=== PATIENT | female | born 1945 | race Two or more races ===

== ENCOUNTER 2016-03-23 21:05 | Emergency (ER) | payer MEDICARE, OTHER ==
[~2016-03-23] VITALS: Ht 167.6 cm; Wt 77.1 kg
[2016-03-23 21:06] VITALS: BP 134/72
[2016-03-23] MEDS ORDERED: Norco 5mg/325mg tab ORAL ONE (21:30)
[2016-03-23] MEDS ORDERED: ACETAMINOPHEN-1 EAC1 ORAL (22:39)
--- NOTE | 2016-03-23 22:39 | Emergency Room Report ---
History of Present Illness General Chief Complaint: Multiple Trauma/Fall Source: Patient, Medical Record, EMS Present Illness HPI Is a 70-year-old female who presents with chief complaint of back pain. She using a walker and slipped and fell on her butt. Occur just prior to arrival. Complaining of lower back pain. Pain is 10 out of 10. No other injury. Did not pass out. No nausea no vomiting. No head injury. Allergies: Coded Allergies: No Known Allergies (Unverified , 03/23/16) Patient History Past Medical History: see triage record, old chart reviewed Past Surgical History: other Pertinent Family History: none, other Social History: Denies: smoking Now: No Immunizations: other Reviewed Nursing Documentation: PMH: Agreed, PSxH: Agreed Nursing Documentation-PMH Past Medical History: No History, Except For Hx Hypertension: Yes Hx Diabetes: Yes History Of Psychiatric Problem: Yes - SCHEZOPHERNIA, ANXIETY, Review of Systems Eye: Denies: blurred vision, eye pain ENT: Denies: ear pain, nose congestion, throat swelling Respiratory: Denies: cough, shortness of breath Cardiovascular: Denies: chest pain, palpitations Gastrointestinal: Denies: abdominal pain, diarrhea, nausea, vomiting Musculoskeletal: Reports: back pain, Denies: joint pain Skin: Denies: rash Neurological: Denies: headache, numbness Endocrine: Denies: increased thirst, increased urine Hematologic/Lymphatic: Denies: easy bruising All Other Systems: negative except mentioned in HPI Physical Exam Vital Signs Date Time Temp Pulse Resp B/P Pulse Ox O2 Delivery O2 Flow Rate FiO2 03/23/16 20:56 97.2 88 18 134/72 97 Room Air vitals normal Sp02 EP Interpretation: reviewed, normal General Appearance: well appearing, no apparent distress, alert Head: normocephalic, atraumatic Eyes: bilateral eye EOMI, bilateral eye PERRL ENT: hearing grossly normal, normal pharynx Neck: full range of motion, supple, no meningismus Respiratory: chest non-tender, lungs clear, normal breath sounds Cardiovascular #1: regular rate, rhythm, no murmur Gastrointestinal: normal bowel sounds, non tender, no mass, no organomegaly, no bruit, non-distended Musculoskeletal: back normal, gait/station normal, normal range of motion Psychiatric: mood/affect normal Skin: warm/dry Medical Decision Making Diagnostic Impression: Primary Impression: Lumbar strain Qualified Codes: S39.012A - Strain of muscle, fascia and tendon of lower back , initial encounter Additional Impression: Fall Qualified Codes: W19.XXXA - Unspecified fall, initial encounter ER Course Patient presents with back pain. No fracture dislocation. She does have arthritic changes. We'll discharge home. CT/MRI/US Diagnostic Results CT/MRI/US Diagnostic Results : Imaging Test Ordered: CT lumbar spine Impression negative per radiologist Last Vital Signs Date Time Temp Pulse Resp B/P Pulse Ox O2 Delivery O2 Flow Rate FiO2 03/23/16 21:06 97.9 88 14 134/72 97 Room Air Status: improved Disposition: XFER SNF Condition: Stable Scripts Acetaminophen With Codeine (T#3) (TYLENOL #3 TAB*) Y Tab 1 TAB ORAL Q8H Y for For Pain, #20 TAB Prov: PRASAD CAPPS M.D. 03/23/16 Referrals: ANISH GABRIEL (PCP) Additional Instructions: Followup with your DrJac in 7 days. Return if symptom worsen. PRASAD CAPPS M.D. Mar 23, 2016 22:39
[2016-03-23 23:40] VITALS: BP_SYST 134; BP_SYST 145; BP_DIAS 71; BP_DIAS 72
--- NOTE | 2016-03-25 13:45 | Diagnostic Imaging Report ---
Indications: TRAUMA, pain status post fall Technique: Spiral acquisitions obtained through the lumbar spine. Multiplanar reconstructions were generated. No IV contrast utilized. Total dose length product 492 mGycm. CTDIvol(s) 17 mGy Comparison: None Findings: The vertebral body heights are preserved. The disc spaces are preserved there are fracture deformities of the bilateral L1 transverse processes. These are of indeterminate age, although suspect late subacute or chronic. No dislocations. There is extensive facet degeneration demonstrated. There is also extensive degenerative proliferative change at multiple levels. At L5-S1, there is bone on bone appearance of the inferior L5 spinous process with the posterior aspect of the sacrum. At T12-L1 and L1-L2, there are large flowing osteophytes. No significant disc bulge or protrusion, spinal stenosis, or neural foraminal stenosis. At L2-3, there is circumferential annular bulge. Is bilateral facet degeneration. No significant spinal stenosis or neural foraminal stenosis. There are large flowing osteophytes. At L3-4 there are large flowing osteophytes and bilateral facet degeneration. No significant disc bulge or protrusion, spinal stenosis, or neural foraminal stenosis. At L4-5, there is mild circumferential annular bulge. No spinal stenosis or neural frontal stenosis. There is bilateral facet degeneration. And L5-S1, there is mild circumferential annular bulge. No significant spinal stenosis or neural foraminal narrowing. There is bilateral facet degeneration. Incidentally noted are cholecystectomy clips. There are atherosclerotic changes of the abdominal aorta Impression: No acute bony trauma Degenerative changes, as described Bone on bone appearance of the L5 and S1 spinous processes, consistent with so-called Bastrup syndrome Incidental finding of prior cholecystectomy This agrees with the preliminary interpretation provided overnight by [facility]. The CT scanner at [facility] is accredited by the [employer] [place] [employer] and the scans are performed using protocols designed to limit radiation exposure to as low as reasonably achievable to attain images of sufficient resolution adequate for diagnostic evaluation.
== END 2016-03-23 23:45 ==
LOC: EDBD 21:05 → EMR 21:50
DX: S39.012A Strain of muscle, fascia and tendon of lower back, initial encounter (principal); W01.0XXA Fall on same level from slipping, tripping and stumbling without subsequent striking against object, initial encounter; Y93.01 Activity, walking, marching and hiking; Y92.9 Unspecified place or not applicable; E11.9 Type 2 diabetes mellitus without complications; I10 Essential (primary) hypertension; Z86.59 Personal history of other mental and behavioral disorders
CPT/HCPCS: 72131; 99284